=== PATIENT | male | born 1985 | race Caucasian/White ===

== ENCOUNTER 2019-04-14 00:11 | Emergency (ER) | payer SELFPAY ==
[~2019-04-14] VITALS: Ht 180.3 cm; Wt 83.9 kg
[2019-04-14 00:28] VITALS: BP 149/104
[2019-04-14] MEDS ORDERED: IBUPROFEN 600 MG TABLET PO ONE ×2 (00:52→01:00)
--- NOTE | 2019-04-14 01:26 | NUR ---
PT BACK FROM CT. PENDING RESULT.
== END 2019-04-14 03:14 | disposition home or self-care (01) ==
LOC: ER 00:16
DX: S20.212A Contusion of left front wall of thorax, initial encounter (principal); S80.02XA Contusion of left knee, initial encounter; S09.8XXA Other specified injuries of head, initial encounter; R51 Headache; I10 Essential (primary) hypertension; Z98.890 Other specified postprocedural states; Z60.2 Problems related to living alone; V49.9XXA Car occupant (driver) (passenger) injured in unspecified traffic accident, initial encounter; Y93.89 Activity, other specified; Y92.488 Other paved roadways as the place of occurrence of the external cause; Y99.8 Other external cause status
CPT/HCPCS: 70450-TC; 71045-TC

== ENCOUNTER 2019-06-18 18:56 | Emergency (ER) | payer SELFPAY ==
--- NOTE | 2019-06-18 19:10 | NUR ---
PT REFUSE TO BE SEEN
== END 2019-06-18 19:42 | disposition left against medical advice (07) ==
LOC: ER 19:00
DX: Z53.21 Procedure and treatment not carried out due to patient leaving prior to being seen by health care provider (principal)